=== PATIENT | female | born 1985 | race Caucasian/White ===

== ENCOUNTER 2018-03-08 23:08 | Inpatient (IN) | payer BC ==
[~2018-03-08] VITALS: Ht 165.1 cm; Wt 71.4 kg
[2018-03-08 23:32] VITALS: BP 164/97; PULSE 82; TEMP 97.5
[2018-03-09] VITALS (61 sets, daily range): BP systolic 102–167; BP diastolic 56–103; PULSE 60–144; TEMP 97.8–100
[2018-03-09 01:13] LABS: BASO % 0.3 % (0.0-2.0); EOS # 0.1 (0.0-0.7); EOS % 0.6 % (0-4.0); GRAN # 8.3 (1.4-6.5); GRAN % 73.7 % (42.2-75.2); HEMOGLOBIN 11.6 g/dl (12.5-16.0); LYMPH # 2.1 (1.2-3.4); LYMPH % 18.8 % (20.0-51.0); MEAN CELL VOLUME 95 fl (80.0-100.0); MEAN CORPUSCULAR HEMOGLOBIN 33 pg (27.0-31.0); MEAN CORPUSCULAR HGB CONC 35 g/dl (33.0-37.0); MEAN PLATELET VOLUME 11.4 fl (7.4-10.4); MONO # 0.6 (0.1-0.6); MONO % 5.6 % (1.7-9.3); PLATELET COUNT 220 K/mm3 (130-400); RED BLOOD COUNT 3.48 M/mm3 (4.10-5.30); REDCELL DISTRIBUTION WIDTH-CV 12.3 % (11.5-14.5)
[2018-03-09 01:17] LABS: HEMATOCRIT 32.9 % (37.0-47.0)
[2018-03-09] MEDS ORDERED: PROTONIX 40MG T40 MG PO (02:07)
[2018-03-09] MEDS ORDERED: PRENATAL MVI PO (02:08)
[2018-03-10 05:25] VITALS: BP 122/74; PULSE 77; TEMP 98.3
[2018-03-10 08:00] VITALS: BP 116/74; PULSE 71; TEMP 97.9
[2018-03-10] MEDS ORDERED: IBU600 MG PO (10:09)
[2018-03-10 16:26] VITALS: BP 124/87; PULSE 81; TEMP 97.9
== END 2018-03-10 17:10 | disposition home or self-care (01) | DRG 806 ==
LOC: LDRO 23:08 → OB 03-09 00:46 → LDR 03-09 00:46 → OB 03-09 18:10
PROVIDERS: Obstetrics & Gynecology
PROC: 10E0XZZ Delivery of Products of Conception, External Approach (ICD-10-PCS; principal; 2018-03-09)
PROC: 0KQM0ZZ Repair Perineum Muscle, Open Approach (ICD-10-PCS; 2018-03-09)
PROC: 0UQMXZZ Repair Vulva, External Approach (ICD-10-PCS; 2018-03-09)
DX: O77.0 Labor and delivery complicated by meconium in amniotic fluid (principal); K51.90 Ulcerative colitis, unspecified, without complications; Z37.0 Single live birth; Z3A.40 40 weeks gestation of pregnancy; O70.1 Second degree perineal laceration during delivery; O70.0 First degree perineal laceration during delivery; O99.62 Diseases of the digestive system complicating childbirth; O99.02 Anemia complicating childbirth; D64.9 Anemia, unspecified; O99.344 Other mental disorders complicating childbirth; F32.9 Major depressive disorder, single episode, unspecified
CPT/HCPCS: J2405; J2590; J2795; J7120

== ENCOUNTER 2019-04-17 19:20 | Emergency (ER) | payer BC ==
[~2019-04-17] VITALS: Ht 165.1 cm; Wt 59.1 kg
[~2019-04-17 19:20] MED LIST: IBU600 MG PO; PRENATAL MVI PO; PROTONIX 40MG T40 MG PO
[2019-04-17 19:49] VITALS: TEMP 99
[2019-04-17 21:05] LABS: COLLECTION METHOD CLEAN CATCH
[2019-04-17 21:13] LABS: BASO % 0.3 % (0.0-2.0); EOS # 0.1 (0.0-0.7); EOS % 0.7 % (0-4.0); GRAN # 5.2 (1.4-6.5); GRAN % 70.6 % (42.2-75.2); HEMOGLOBIN 12.3 g/dl (12.5-16.0); LYMPH # 1.7 (1.2-3.4); LYMPH % 23.3 % (20.0-51.0); MEAN CELL VOLUME 95 fl (80.0-100.0); MEAN CORPUSCULAR HEMOGLOBIN 33 pg (27.0-31.0); MEAN CORPUSCULAR HGB CONC 35 g/dl (33.0-37.0); MEAN PLATELET VOLUME 10.3 fl (7.4-10.4); MONO # 0.4 (0.1-0.6); MONO % 4.8 % (1.7-9.3); PLATELET COUNT 188 K/mm3 (130-400); RED BLOOD COUNT 3.77 M/mm3 (4.10-5.30)
[2019-04-17 21:15] LABS: HEMATOCRIT 35.7 % (37.0-47.0)
[2019-04-17 21:26] LABS: ALANINE AMINOTRANSFERASE 17 U/L (9-52); ALBUMIN 4.5 gm/dL (3.5-5.0); ALKALINE PHOSPHATASE 43 U/L (50-136); ANION GAP 10 mmol/L (7-16); AST,SGOT 21 U/L (15-37); BILIRUBIN,TOTAL 0.3 mg/dL (0.0-1.0); BLOOD UREA NITROGEN 17 mg/dL (7-17); CALCIUM 9.1 mg/dL (8.4-10.2); CARBON DIOXIDE 25 mmol/L (22-30); CHLORIDE 107 mmol/L (98-107); CREATININE, serum 0.88 (0.52-1.25); GLUCOSE 102 mg/dL (74-106); LIPASE 54 U/L (23-300); POTASSIUM 3.5 mmol/L (3.4-5.0); SODIUM 143 mmol/L (137-145); TOTAL PROTEIN 8.1 gm/dL (6.4-8.2)
[2019-04-17 21:31] LABS: AMORPHOUS CRYSTAL Present /uL; MUCOUS Present /lpf; PH 7 (5-8); SQUAMOUS EPITHELIAL 0-2 /hpf; URINE APPEARANCE Cloudy; URINE BACTERIA Rare /hpf; URINE BILIRUBIN Negative (NEGATIVE); URINE BLOOD 1+ (NEGATIVE); URINE COLOR Yellow; URINE GLUCOSE Negative (NEGATIVE); URINE KETONE Negative (NEGATIVE); URINE LEUKOCYTE ESTERASE Negative (NEGATIVE); URINE NITRATE Negative (NEGATIVE); URINE PROTEIN(semi-quant) Negative (NEGATIVE); URINE RBC 0-2 /hpf; URINE UROBILINOGEN >=4.0 mg/dL (NEGATIVE)
[2019-04-17 21:32] LABS: C-REACTIVE PROTEIN < 0.5 mg/dL (0.0-0.9)
[2019-04-17 23:48] VITALS: BP 117/56; PULSE 88
== END 2019-04-17 23:48 | disposition home or self-care (01) ==
LOC: COL.ER 19:20
PROVIDERS: Physician Assistant
DX: O26.891 Other specified pregnancy related conditions, first trimester (principal); R10.2 Pelvic and perineal pain; Z3A.00 Weeks of gestation of pregnancy not specified
CPT/HCPCS: J2405; J7030

== ENCOUNTER 2019-04-19 13:26 | Observation (INO) | payer BC ==
[2019-04-19] VITALS (8 sets, daily range): BP systolic 108–124; BP diastolic 60–72; PULSE 67–89; TEMP 97.8–98.7
[~2019-04-19] VITALS: Ht 165.1 cm; Wt 56.8 kg
[2019-04-19 14:42] LABS: COLLECTION METHOD CLEAN CATCH
[2019-04-19 14:48] LABS: BASO % 0.2 % (0.0-2.0); EOS % 0.2 % (0-4.0); GRAN # 7.1 (1.4-6.5); GRAN % 85.8 % (42.2-75.2); HEMOGLOBIN 11.5 g/dl (12.5-16.0); LYMPH # 0.9 (1.2-3.4); LYMPH % 10.5 % (20.0-51.0); MEAN CELL VOLUME 95 fl (80.0-100.0); MEAN CORPUSCULAR HEMOGLOBIN 32 pg (27.0-31.0); MEAN CORPUSCULAR HGB CONC 34 g/dl (33.0-37.0); MEAN PLATELET VOLUME 10.4 fl (7.4-10.4); MONO # 0.2 (0.1-0.6); MONO % 2.9 % (1.7-9.3); PLATELET COUNT 170 K/mm3 (130-400); RED BLOOD COUNT 3.55 M/mm3 (4.10-5.30)
[2019-04-19 14:50] LABS: HEMATOCRIT 33.8 % (37.0-47.0)
[2019-04-19 14:57] LABS: MUCOUS Present /lpf; PH 8 (5-8); SQUAMOUS EPITHELIAL 0-2 /hpf; URINE APPEARANCE Cloudy; URINE BACTERIA Rare /hpf; URINE BILIRUBIN Negative (NEGATIVE); URINE BLOOD 2+ (NEGATIVE); URINE COLOR Yellow; URINE GLUCOSE Negative (NEGATIVE); URINE KETONE 1+ (NEGATIVE); URINE LEUKOCYTE ESTERASE Negative (NEGATIVE); URINE NITRATE Negative (NEGATIVE); URINE PROTEIN(semi-quant) 1+ (NEGATIVE); URINE RBC 0-2 /hpf; URINE UROBILINOGEN Negative (NEGATIVE)
[2019-04-19 14:58] LABS: CALCIUM 8.9 mg/dL (8.4-10.2); CREATININE, serum 0.76 (0.52-1.25); POTASSIUM 3.6 mmol/L (3.4-5.0)
[2019-04-19] MEDS ORDERED: IBU600 MG PO (18:38)
[2019-04-19] MEDS ORDERED: PERCOCET 325 MG1 TA2 PO (18:39)
--- NOTE | 2019-04-19 19:00 | NUR ---
1900 TO 222 PER BED FROM PACU. SLEEPY. IV INFUSES. SCDS ON. WATER TAKEN.
--- NOTE | 2019-04-19 20:00 | NUR ---
2000 UP TO BR WITH ASSIST AND VOIDED 200CC EASILY. ABD INCS C,D&I. RETURNED TO BED. MORE ALERT.
--- NOTE | 2019-04-19 21:00 | NUR ---
2100 PERCOCET X1 PO GIVEN AT 2029 FOR MILD DISCOMFORT. WANTING TO GO HOME. IV DCD. DISCHARGE PAPERWORK DONE. CRACKERS TAKEN WITHOUT NAUSEA. 2129 DISMISSED TO HOME PER W/C ACC BY KJ AND BEAUTY DIRECTOR.
== END 2019-04-19 21:30 | disposition home or self-care (01) ==
LOC: COL.ER 13:26 → UNDODEPER 17:30 → OB 17:49
PROVIDERS: Emergency Medicine; ADMIT Obstetrics & Gynecology
DX: O00.101 Right tubal pregnancy without intrauterine pregnancy (principal); K66.1 Hemoperitoneum; K51.90 Ulcerative colitis, unspecified, without complications; G43.909 Migraine, unspecified, not intractable, without status migrainosus
CPT/HCPCS: J0690; J1885; J2270; J2405; J2550; J2704; J2710; J3010; J7120

== ENCOUNTER 2021-03-30 19:30 | Emergency (ER) | payer BC ==
[~2021-03-30] VITALS: Ht 165.1 cm; Wt 59.1 kg
[~2021-03-30 19:30] MED LIST changes: +PERCOCET 325 MG1 TA2 PO
[2021-03-30 21:20] LABS: COLLECTION METHOD CLEAN CATCH
[2021-03-30 21:21] LABS: BASO % 0.2 % (0.0-2.0); GRAN # 4.5 K/mm3 (1.4-6.5); GRAN % 81.1 % (42.2-75.2); HEMATOCRIT 38.8 % (37.0-47.0); HEMOGLOBIN 13.2 g/dl (12.5-16.0); LYMPH # 0.8 K/mm3 (1.2-3.4); LYMPH % 14.4 % (20.0-51.0); MEAN CELL VOLUME 92 fl (80.0-100.0); MEAN CORPUSCULAR HEMOGLOBIN 31 pg (27-31); MEAN CORPUSCULAR HGB CONC 34 g/dl (33.0-37.0); MEAN PLATELET VOLUME 11.4 fl (7.4-10.4); MONO # 0.2 K/mm3 (0.1-0.6); MONO % 4.1 % (1.7-9.3); PLATELET COUNT 162 K/mm3 (130-400); RED BLOOD COUNT 4.23 M/mm3 (4.10-5.30); REDCELL DISTRIBUTION WIDTH-CV 11.9 % (11.5-14.5)
[2021-03-30 21:28] LABS: MUCOUS Present (NOT PRESENT); PH 5 (5-8); URINE APPEARANCE Cloudy (CLEAR/HAZY); URINE BACTERIA Occasional /hpf (NONE SEEN); URINE BILIRUBIN Negative (NEGATIVE); URINE BLOOD Negative (NEGATIVE); URINE COLOR Yellow (YELLOW); URINE GLUCOSE Negative (NEGATIVE); URINE KETONE 2+ (NEGATIVE); URINE LEUKOCYTE ESTERASE Negative (NEGATIVE); URINE NITRATE Negative (NEGATIVE); URINE PROTEIN(semi-quant) Negative (NEGATIVE); URINE UROBILINOGEN Negative (NEGATIVE)
[2021-03-30 21:30] LABS: ALBUMIN 4.1 gm/dL (3.5-5.0); BILIRUBIN,TOTAL 0.6 mg/dL (0.2-1.2); C-REACTIVE PROTEIN 0.02 mg/dL (0.00-0.50); CREATININE, serum 0.85 mg/dL (0.57-1.11); POTASSIUM 4.1 mmol/L (3.5-4.5); TOTAL PROTEIN 8.2 gm/dL (6.2-8.1)
[2021-03-30 23:05] VITALS: BP 102/66; PULSE 80; TEMP 98.4
== END 2021-03-30 23:05 | disposition home or self-care (01) ==
LOC: COL.ER 19:30
PROVIDERS: Nurse Practitioner
DX: U07.1 COVID-19 (principal)
CPT/HCPCS: J1200; J1885; J2765; J7030